=== PATIENT | male | born 1955 | race Caucasian/White ===

== ENCOUNTER → 2016-11-18 | Outpatient (CLI) | payer SELFPAY ==
--- NOTE | 2016-11-19 09:52 | RAD ---
EXAM DESCRIPTION: KUB CLINICAL HISTORY: KIDNEY STONES COMPARISON: March 11, 2016 IMPRESSION: Single AP supine view of the abdomen shows a nonspecific, nonobstructive bowel gas pattern. No definite calcification is seen in the expected location of the kidneys or ureters. Kidneys are partly secured by overlying bowel gas and stool in the colon. Several probably vascular calcifications in the pelvis are stable from previous. Electronically signed by: Tanner Osman MD 11/19/2016 9:51 AM CDT
== END | disposition home or self-care (01) ==
LOC: RAD 14:29
PROVIDERS: ATTEND Urology
DX: N20.0 Calculus of kidney (principal)

== ENCOUNTER → 2017-03-10 | Outpatient (CLI) | payer BC | END | disposition home or self-care (01) | LOC: GMAB 10:37 | PROVIDERS: ATTEND Family Medicine | DX: Z00.01 Encounter for general adult medical examination with abnormal findings (principal) ==

== ENCOUNTER → 2017-09-03 | Outpatient (CLI) | payer BC | LOC: GMAB 20:08 | PROVIDERS: ATTEND Family Medicine | DX: L02.11 Cutaneous abscess of neck (principal) ==

== ENCOUNTER → 2017-12-31 | Outpatient (CLI) | payer BC | LOC: GMAB 10:50 | PROVIDERS: ATTEND Family Medicine | DX: Z00.01 Encounter for general adult medical examination with abnormal findings (principal) ==

== ENCOUNTER → 2018-03-30 | Outpatient (CLI) | payer BC ==
--- NOTE | 2018-03-30 15:44 | RAD ---
EXAM DESCRIPTION: KUB CLINICAL HISTORY: KIDNEY STONES COMPARISON: Previous study November 18, 2016, CT abdomen and pelvis February 14, 2015 TECHNIQUE: KUB FINDINGS: Moderate amount of fecal material in the colon. No small bowel dilatation. No visceromegaly or mass. No worrisome calcifications. Compared to previous study, calcifications in the pelvis are stable and thought to be vascular. Mild degenerative changes of the lumbar spine with slight rightward curvature. Multilevel degenerative disc narrowing is seen. Pedicles appear intact with normal transverse processes. Sacrum appears intact. Normal SI joints. Degenerative changes are seen in the pubic symphysis. Previous CT showed a stone in the proximal right ureter. No definite ureteral stone is seen on this study. IMPRESSION: No acute process. Electronically signed by: Vimal Carrillo MD 03/30/2018 3:43 PM CDT
== END ==
LOC: RAD 14:34
PROVIDERS: ATTEND Urology
DX: N20.0 Calculus of kidney (principal)

== ENCOUNTER → 2019-01-25 | Outpatient (CLI) | payer MEDICARE, OTHER | LOC: GMAE 11:37 | PROVIDERS: ATTEND Family Medicine | DX: I10 Essential (primary) hypertension (principal); E78.2 Mixed hyperlipidemia; Z12.5 Encounter for screening for malignant neoplasm of prostate | CPT/HCPCS: 84443; G0103 ==

== ENCOUNTER → 2019-06-28 | Outpatient (CLI) | payer MEDICARE, OTHER ==
--- NOTE | 2019-06-28 16:23 | RAD ---
2 Radiographs of the Abdomen. Indication: RENAL STONES Comparison: March 30, 2018. Impression: Mild constipation without findings of obstruction. No abnormal calcifications. No acute osseous abnormality. Electronically signed by: Franko Moya MD 06/28/2019 4:[address] [facility]
== END ==
LOC: RAD 14:06
PROVIDERS: ATTEND Urology
DX: N20.0 Calculus of kidney (principal); K59.00 Constipation, unspecified

== ENCOUNTER → 2020-02-07 | Outpatient (CLI) | payer MEDICARE, OTHER | LOC: GMAE 10:21 | PROVIDERS: ATTEND Family Medicine | DX: Z12.5 Encounter for screening for malignant neoplasm of prostate (principal); I10 Essential (primary) hypertension | CPT/HCPCS: 84443; G0103 ==

== ENCOUNTER → 2020-06-14 | Outpatient (CLI) | payer MEDICARE, OTHER | LOC: GMAE 12:33 | PROVIDERS: ATTEND Family Medicine | DX: I10 Essential (primary) hypertension (principal) ==